=== PATIENT | female | born 1995 | race Caucasian/White ===

== ENCOUNTER 2023-02-12 08:33 | Emergency (ER) | payer MEDICAID ==
[~2023-02-12] VITALS: Ht 165.1 cm; Wt 63.0 kg
[2023-02-12 08:40] VITALS: O2SAT 98
[2023-02-12 09:15] VITALS: BP 107/73; PULSE 97; RESP 20; TEMP 98.6
[2023-02-12] MEDS ORDERED: ACETAMINOPHEN 325MG TABLET PO ONE (09:15)
[2023-02-12] MEDS ORDERED: METOCLOPRAMIDE HCL 10MG TABLET PO ONE (09:15)
[2023-02-12] MEDS ORDERED: KETOROLAC 60MG/2ML VIAL IM ONE (09:15)
[2023-02-12] MEDS ORDERED: ACET-2708 MT (10:46)
== END 2023-02-12 11:08 | disposition home or self-care (01) ==
LOC: ER 08:33
DX: R51.9 Headache, unspecified (principal)
CPT/HCPCS: 99283; 81025; 96372; J8597; J1885